=== PATIENT | male | born 1960 | race Caucasian/White ===

== ENCOUNTER 2017-02-21 22:55 | Emergency (ER) | payer OTHER ==
[2017-02-21 23:18] VITALS: RESP 16
[2017-02-21 23:29] LABS: % IMMATURE GRANULYOCYTES 0.8 % (0.0-1.1); ABSOLUTE IMMATURE GRANULOCYTES 0.05 10^3/uL (0.00-0.10); ADD DIFF? NO; ADD MORPH? NO; ADD SCAN? NO; ATYPICAL LYMPHOCYTE FLAG 10 (0-99); FRAGMENT RBC FLAG 0 (0-99); HEMATOCRIT 51.8 % (40.0-51.0); HEMOGLOBIN 17.9 g/dL (13.7-17.5); LEFT SHIFT FLG 10 (0-99); LIPEMIA HEMOLYSIS FLAG 90 (0-99); MEAN CELL HEMOGLOBIN 30.6 pg (27.9-34.1); MEAN CELL HEMOGLOBIN CONCENTR. 34.6 g/dL (32.4-36.7); MEAN CELL VOLUME 88.5 fL (81.5-99.8); MEAN PLATELET VOLUME 9.6 fL (8.7-11.7); PLATELET CLUMPS FLAG 0 (0-99); PLATELET COUNT 261 10^3/uL (150-400); RED BLOOD CELL COUNT 5.85 10^6/uL (4.40-6.38); RED CELL DISTRIBUTION WIDTH 13.4 % (11.5-15.2)
[2017-02-21 23:41] LABS: ANION GAP 18 mEq/L (8-16); CALCIUM 10.2 mg/dL (8.5-10.4); CARBON DIOXIDE 19 mEq/l (22-31); CHLORIDE 105 mEq/L (97-110); CREATININE 1.1 mg/dL (0.7-1.3); ETHANOL SERUM 137 mg/dL (0-10); GLOMERULAR FILTRATION RATE > 60; GLUCOSE 108 mg/dL (70-100); POTASSIUM 4.2 mEq/L (3.5-5.2); SODIUM 142 mEq/L (134-144)
[2017-02-22] MEDS ORDERED: PANTOPRAZOLE SODIUM 40 MG TAB PO ONE ×2 (04:11→04:29)
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
[2017-02-22 05:05] VITALS: PULSE 87
[2017-02-22 08:40] VITALS: BP 156/78; TEMP 97.5; O2SAT 98
== END 2017-02-22 08:17 ==
DX: F32.9 Major depressive disorder, single episode, unspecified (principal); I10 Essential (primary) hypertension; Z87.891 Personal history of nicotine dependence
CPT/HCPCS: 80305; G0480

== ENCOUNTER 2018-10-25 14:41 | Emergency (ER) | payer OTHER ==
--- NOTE | 2018-10-25 15:45 | EDPHY ---
H & P Stated Complaint: abd pain lower for 2 days . Time Seen by Provider: 10/25/18 15:10 HPI/ROS: 58 yo M presents c/o one month of intermittent abdominal pain, constipation and at times difficulty urinating. LUTS. He denies diarrhea, fever or chills. He tried to call his primary to make an appointment but was told by the nurse hotline to go to the ED. He next went to an urgent care which also referred him to the ED. He states it all began after a course of Amoxicillin, which on day 8 he had to discontinue secondary to abdominal cramping. Review of systems As per HPI General no fever no chills no weakness HEENT no eye pain no eye discharge. No eye redness, no sore throat Respiratory no cough, no shortness of breath Cardiac no chest pain, no peripheral edema GI positive abdominal cramping positive constipation negative diarrhea no vomiting no flank pain, no hematuria, no dysuria Musculoskeletal no myalgias, no joint pain Heme no easy bruising, no easy bleeding Endo no polyuria, no polydipsia Skin no rashes, no pruritus Neuro no syncope, no dizziness, no headaches Psych is no suicidal ideation, no homicidal ideation Source: Patient, Family Exam Limitations: No limitations - Personal History Current Tetanus Diphtheria and Acellular Pertussis (TDAP): Yes - Medical/Surgical History Hx Asthma: No Hx Chronic Respiratory Disease: No Hx Diabetes: No Hx Cardiac Disease: Yes Hx Renal Disease: No Hx Cirrhosis: No Hx Alcoholism: No Hx HIV/AIDS: No Hx Splenectomy or Spleen Trauma: No Other PMH: depression, anxiety, appy, hernia, htn - Family History Significant Family History: No pertinent family hx - Social History Smoking Status: Former smoker Alcohol Use: None Drug Use: None - Physical Exam Exam: 58-year-old male alert and oriented no acute distress nontoxic Appearance, afebrile HEENT atraumatic normocephalic, extraocular muscles intact , anicteric Oropharynx negative for erythema negative exudate, tolerating her own secretions Neck supple no meningismus Lungs clear to auscultation bilaterally Heart regular rate and rhythm without murmur rub or gallop Abdomen nondistended normoactive bowel sounds soft mild left lower quadrant and suprapubic tenderness, no guarding no rebound Back no CVA tenderness, no step-offs, no spinal tenderness Extremities no cyanosis clubbing or edema Neuro alert and oriented, no focal deficits Constitutional: Initial Vital Signs Temperature (C) 36.9 C 10/25/18 15:35 Heart Rate 100 10/25/18 15:35 Respiratory Rate 16 10/25/18 15:35 Blood Pressure 146/88 H 10/25/18 15:35 O2 Sat (%) 95 10/25/18 15:35 O2 Delivery Mode Room Air Allergies/Adverse Reactions: Penicillins Allergy (Verified 02/21/17 23:13) Home Medications: Medication Instructions Recorded Ambien 02/21/17 Fenofibrate 02/21/17 Lisinopril 02/21/17 Lorazepam 02/21/17 Pantoprazole Sodium 02/21/17 Ciprofloxacin [Cipro] 500 mg PO BID 10 Days #20 tab 10/25/18 Mirtazapine 10/25/18 metroNIDAZOLE [Flagyl 500 mg (*)] 500 mg PO TID 10 Days #30 tab 10/25/18 Medical Decision Making - Diagnostics Imaging Results: Imaging Impressions Abdomen CT 10/25/18 16:37 Impression: Acute diverticulitis of the sigmoid colon. Diffuse colonic diverticulosis. Findings and recommendations discussed with Cass Paul M.D., at 5:25 p.m., on October 25, 2018. Final report concurs with initial preliminary interpretation. E:amm ED Course/Re-evaluation: Patient seen and evaluated for crampy lower abdominal pain x1 month IV established, lab sent CBC, CMP, lipase all within normal limits Lactic acid negative CT abdomen Positive for acute diverticulitis Impression Acute diverticulitis Plan Flagyl three times daily times 10 days Cipro twice daily times 10 days Follow-up with primary care next week Given education on reasons to return to the emergency department Differential Diagnosis: Differential diagnosis considered but not limited to Diverticulitis, bowel obstruction, urinary retention, gastroenteritis, pancreatitis, cholecystitis, prostatitis - Data Points Laboratory Results: 10/25/18 10/25/18 10/25/18 16:24 16:24 16:05 POC Hgb 17.0 gm/dL gm/dL (13.7-17.5) POC Hct 50 % % (40-51) POC Sodium 143 mEq/L mEq/L (135-145) POC Potassium 3.6 mEq/L mEq/L (3.3-5.0) POC Chloride 105 mEq/L mEq/L (97-110) POC BUN 15 mg/dL mg/dL (7-23) POC Creatinine 1.1 mg/dL mg/dL (0.7-1.3) POC Glucose 83 mg/dL mg/dL (70-100) POC Lactic Acid Jayesh 1.3 mmol/L mmol/L (0.7-2.1) Total Bilirubin 0.9 mg/dL mg/dL (0.1-1.4) Conjugated Bilirubin 0.4 mg/dL mg/dL (0.0-0.5) Unconjugated Bilirubin 0.5 mg/dL mg/dL (0.0-1.1) AST 28 IU/L IU/L (17-59) ALT 34 IU/L IU/L (21-72) Alkaline Phosphatase 67 IU/L IU/L (38-126) Total Protein 7.9 g/dL g/dL (6.3-8.2) Albumin 4.9 g/dL g/dL (3.5-5.0) Lipase 66 IU/L IU/L (23-300) Point of Care Test Results: CBC CBC Collection Date 10/25/18 CBC Collection Time 16:25 WBC 7.8 RBC 5.44 HGB 16.5 HCT 47.7 PLT 243 Neut # 6.0 Neut 77.5 LYMPH # 1.3 LYMPH 16.3 Other WBC # 0.5 Other WBC 6.2 MCV 87.7 Chemistry 10/25/18 16:24 POC Sodium 143 mEq/L mEq/L (135-145) POC Potassium 3.6 mEq/L mEq/L (3.3-5.0) POC Chloride 105 mEq/L mEq/L (97-110) POC BUN 15 mg/dL mg/dL (7-23) POC Creatinine 1.1 mg/dL mg/dL (0.7-1.3) POC Glucose 83 mg/dL mg/dL (70-100) Blood Gas/Lactic Acid-Venous 10/25/18 16:24 POC Lactic Acid Jayesh 1.3 mmol/L mmol/L (0.7-2.1) ISTAT H&H 10/25/18 16:24 POC Hgb 17.0 gm/dL gm/dL (13.7-17.5) POC Hct 50 % % (40-51) Urine Dip Collection Date 10/25/18 Collection Time 17:50 Specific [place] (1.002-1.030) 1.025 PH (5.0-7.5) 5.5 Leukocytes (Negative) Negative Nitrites (Negative) Negative Protein (Negative) Negative Glucose (Negative) Negative Ketones (Negative) Negative Urobilnogen (0.2-1.0 EU) 0.2 Bilirubin (Negative) Negative Blood (Negative) Negative Departure - Departure Disposition: Home, Routine, Self-Care Clinical Impression: Diverticulitis large intestine Condition: Good Instructions: Diverticulitis (ED), Diverticulitis Diet (ED) Additional Instructions: Antibiotics Flagyl and Ciprofloxacin for 10 days Follow up with your primary care next week. Referrals: Trey Ray MD [Primary Care Provider] - As per Instructions Prescriptions: Ciprofloxacin [Cipro] 500 mg PO BID 10 Days #20 tab metroNIDAZOLE [Flagyl 500 mg (*)] 500 mg PO TID 10 Days #30 tab
[2018-10-25] MEDS ORDERED: IOPAMIDOL (ISOVUE-300) 100 ML BTL ONE (16:49)
[2018-10-25 17:58] VITALS: BP 160/102
== END 2018-10-25 17:50 | disposition home or self-care (01) ==
LOC: CED 14:41
DX: K57.32 Diverticulitis of large intestine without perforation or abscess without bleeding (principal)
CPT/HCPCS: 74177-PO; 80076-PO; 82435-PO; 82565-PO; 82947-PO; 83605-PO; 84132-PO; 84295-PO; 84520-PO; 85014-PO; Q9967